=== PATIENT | male | born 1970 | race Caucasian/White ===

== ENCOUNTER 2022-10-27 13:22 | Outpatient (CLI) | payer BC, SELFPAY ==
[2022-10-27 14:02] LABS: Alanine Aminotransferase 26 U/L (6-50); Albumin Level 4.9 g/dL (3.5-5.1); Alkaline Phosphatase 66 U/L (38-126); Anion Gap 4 mmol/L (8-16); Aspartate Amino Transferase 29 U/L (17-59); Bilirubin Indirect 2.5 mg/dL (0-1.1); Bilirubin,Total 2.4 mg/dL (0.2-1.3); Blood Urea Nitrogen 11 mg/dL (9-20); Calcium 9.1 mg/dL (8.4-10.2); Carbon Dioxide 34 mmol/L (22-30); Chloride 101 mmol/L (98-107); Estimated Glomerular Filt Rate > 60; Glucose 123 mg/dL (65-110); Potassium 3.7 mmol/L (3.4-5.0); Sodium 139 mmol/L (137-145)
[2022-10-27 14:08] LABS: Iron 109 ug/dL (49-181)
[2022-10-27 14:18] LABS: Percent Iron Saturation 34 % (20-50)
[2022-10-27 14:40] LABS: Hepatitis B Surface Antigen Negative (Negative)
[2022-10-27 14:45] LABS: HAV RESULT Negative (Negative); Hepatitis B Core IgM Result Negative (Negative)
[2022-10-27 14:57] LABS: Hepatitis C Virus Antibody Negative (Negative)
[2022-10-31 11:37] LABS: Actin Antibody (IgG) <20 U (<20); LKM 1 Antibody <=20.0 U (<=20.0)
[2022-11-02 20:20] LABS: Ceruloplasmin 24 mg/dL (18-36)
[2022-11-03 10:54] LABS: Mitochondrial (M2) Ab (IgG) <=20.0 U (<=20.0)
[2022-11-03 15:55] LABS: Alpha Fetoprotein Tumor Marker 3.1 ng/mL (<6.1)
[2022-11-04 00:21] LABS: ALT 19 U/L (9-46); Alpha-2-Macroglobulin 144 mg/dL (106-279); Apolipoprotein A1 184 mg/dL (94-176); Fibrosis Score 0.24; Fibrosis Stage F0-F1; GGT 18 U/L (3-95); Haptoglobin 86 mg/dL (43-212); Necroinflammat Act Grade A0; Total Bilirubin 2.2 mg/dL (0.2-1.2)
== END 2022-10-27 13:23 | disposition home or self-care (01) ==
PROVIDERS: PCP Family Medicine; Visit Provider Nurse Practitioner
DX: R10.11 Right upper quadrant pain (principal); K74.60 Unspecified cirrhosis of liver; R19.8 Other specified symptoms and signs involving the digestive system and abdomen
CPT/HCPCS: 36415; 80053; 80074; 81596; 82105; 82248; 82390; 82728; 83520; 83540; 83550; 84443; 85610; 86038; 86364; 86376

== ENCOUNTER 2022-11-14 09:02 | Outpatient (CLI) | payer BC, SELFPAY ==
--- NOTE | ~2022-11-14 | MR_ITS ---
EXAMINATION: MR MRCP wo/w con/w 3D wo ind DATE: 11/14/2022 10:44 INDICATION: Elevated bilirubin and right upper quadrant abdominal pain. Abnormal biliary ultrasound. TECHNIQUE: Magnetic resonance imaging (MRI) of the abdomen was performed without and with 16 mL Multi ninfa intravenous contrast. Sequences included coronal T2-weighted SS-FSE, coronal T2-weighted FS SS- FSE, coronal T2-weighted FS FIESTA, axial T2-weighted FS FIESTA, axial T2-weighted FIESTA, sagittal T 2-weighted SS-FSE, axial T1-weighted dual-echo FSPGR, axial T2-weighted SS-FSE, axial T1-weighted LAV A, axial T2-weighted STIR FSE. Thick-slab T2-weighted FRFSE-XL images were obtained for magnetic reso nance cholangiopancreatography (MRCP). Rotating maximum intensity projection 3-D reconstructions of t he volumetric data were created by the technologist. Postcontrast sequences included a time course of axial T1-weighted LAVA. COMPARISON: None. FINDINGS: ABDOMEN MRI: Heart size is normal. No pericardial or pleural effusion. Liver, gallbladder, pancreas, spleen, bilateral adrenal glands and kidneys are normal. Visualized portions of bowels are unremarkab le. Bladder is normal. No free intraperitoneal fluid. No pathologically enlarged abdominal or pelvic lymphadenopathy. Mild lumbar levocurvature with mild spondylosis. Right total hip arthroplasty. Like ly secondary asymmetric atrophy of the right iliopsoas and gluteal musculature relative to the left. Bone marrow signal is otherwise unremarkable. ABDOMEN MRCP: No intra or extrahepatic biliary ductal dilation with common bile duct measuring <5 mm maximal diamet er. No cholelithiasis/choledocholithiasis. No obstructing masses identified. IMPRESSION: 1. Normal gallbladder with no biliary ductal dilation or cholelithiasis/choledocholithiasis. Reviewed, dictated and finalized at location A. IMPRESSION: 1. Normal gallbladder with no biliary ductal dilation or cholelithiasis/choledo cholithiasis.
== END 2022-11-14 09:03 | disposition home or self-care (01) ==
PROVIDERS: PCP Family Medicine; Visit Provider Nurse Practitioner
DX: R74.8 Abnormal levels of other serum enzymes (principal); R17 Unspecified jaundice; R10.11 Right upper quadrant pain; R19.8 Other specified symptoms and signs involving the digestive system and abdomen
CPT/HCPCS: 74183; 76376; A9577

== ENCOUNTER 2024-10-16 10:06 | Outpatient (CLI) | payer OTHER, SELFPAY ==
--- NOTE | ~2024-10-16 | CT_ITS ---
EXAMINATION: CT abdomen pelvis wo con DATE: 10/16/2024 10:23 INDICATION: Hernia. TECHNIQUE: Computed tomography (CT) of the abdomen and pelvis was performed without intravenous contr ast. Automated exposure control and iterative reconstruction technique were employed. The dose-length product was 509.85 mGy-cm. COMPARISON: MRCP 11/14/2022 FINDINGS: The visualized portions of the lung bases are clear without pneumonia or pleural effusion. The heart size is normal. No pericardial effusion. The liver, gallbladder, spleen, pancreas, adrenal glands, and kidneys are normal. There is no urolithiasis. The prostate is moderately enlarged. There are no dilated loops of bowel. There are no pathologically enlarged lymph nodes. There is no free int raperitoneal fluid. There is an infraumbilical ventral hernia containing fat. There is a total right hip arthroplasty. There is moderate lumbar spondylosis. IMPRESSION: 1. Infraumbilical ventral hernia containing fat. Reviewed, dictated and finalized at location A.
== END 2024-10-16 10:07 | disposition home or self-care (01) ==
LOC: MICIMG 10:06
PROVIDERS: PCP Family Medicine; Visit Provider Nurse Practitioner Family
DX: K43.9 Ventral hernia without obstruction or gangrene (principal)
CPT/HCPCS: 74176